=== PATIENT | male | born 1945 | race Caucasian/White ===

== ENCOUNTER 2017-10-09 07:00 | Day surgery (SDC) | payer OTHER ==
[2017-10-05 14:49] LABS: Absolute Lymphocytes (CBC) 1.5 K/uL (0.7-4.9); Absolute Monocytes 0.6 K/uL (0.1-1.3); Absolute Neutrophil 4.9 K/uL (1.8-8.0); Basophils % 0.6 % (0-1.3); Eosinophils % 2.5 % (0-4.4); Hematocrit 49.9 % (39.6-49.0); Lymphocytes % 20.4 % (15.3-44.8); MCH 30.1 pg (27.0-35.0); MPV 8.9 fL (7.6-11.3); Monocytes % 8.3 % (3.3-12.3); RBC Red Blood Cell Count 5.67 M/uL (4.33-5.43)
[2017-10-05 14:55] LABS: Protime INR 1.03
[2017-10-05 15:01] LABS: Potassium 4.2 mmol/L (3.5-5.1)
--- NOTE | 2017-10-05 16:13 | RAD REPORT ---
EXAM DESCRIPTION: Campos Mejia (2 Views)10/05/2017 2:21 pm CLINICAL HISTORY: Preop cardiac catheterization COMPARISON: 2016 FINDINGS: The lungs appear clear of acute infiltrate. The heart is normal size IMPRESSION: No acute abnormalities displayed
[~2017-10-09 07:00] MED LIST: HEPA 1000U/500MLS 1,000 UNIT/500 ML BAG IV ONE; LIDOCAINE 1% MPF 2 ML AMPULE ONE; NA CHLORIDE 0.9% 0 ML ONE
[2017-10-09] MEDS ORDERED: NA CHLORIDE 0.9% 500 ML ONE (07:15)
[2017-10-09] MEDS ORDERED: HEPARIN 5000 UNIT/ML 1 ML VIAL ONE (08:14)
[2017-10-09] MEDS ORDERED: NA CHLORIDE 0.9% 50 ML ONE ×2 (08:14→10:01)
[2017-10-09] MEDS ORDERED: NICARDIPINE HCL 25 MG/10 ML IV ONE (08:14)
[2017-10-09] MEDS ORDERED: ATROPINE SULF 1 MG/10 ML SYR IV ONE (08:14)
[2017-10-09] MEDS ORDERED: MIDAZOLAM HCL 2 MG/2 ML INJ ONE ×2 (08:56→09:00)
[2017-10-09] MEDS ORDERED: FENTANYL CITR 100 MCG/2 ML ONE (08:56)
[2017-10-09] MEDS ORDERED: PRASUGREL (EFFIENT) 10 MG TAB ONE (10:21)
[2017-10-09 13:51] VITALS: BMI 25.8
[2017-10-09] MEDS ORDERED: ATORVASTATIN 80 MG TAB PO SCH (21:00)
[2017-10-09] MEDS ORDERED: TAMSULOSIN 0.4 MG SR CAP PO SCH (21:00)
--- NOTE | 2017-10-09 21:33 | OP ---
Surgeon: Todd Mcdaniel MD Procedure: Left heart catheterization, coronary left ventricular angiography, percutaneous coronary intervention, angioplasty of a distal LAD lesion with a stent, successful 0% residual stenosis, 80% p reprocedure. Procedure In Detail: The patient was brought to the cardiac cath laboratory technician in a fasting state. He had dys pnea on exertion, chest tightness, angina symptoms. He was sedated with Versed and fentanyl, prepare d and draped in usual sterile fashion. Right radial approach was used. 1% lidocaine was used to ane sthetize the skin over the right radial artery, and the artery was entered using a 21-gauge needle. A 0.021 inch diameter guidewire was used to cannulate the artery. We used a modified Seldinger techn ique and placed a 6-Ukrainian Terumo sheath, it was flushed, and we gave a radial cocktail consisting of nicardipine, heparin, and nitroglycerin. We guided a [employer] TIG catheter into the ascending aorta u sing fluoroscopy and a short radius tip Glidewire. We were able to angiogram the left ventricle, lef t coronary, right coronary with the TIG catheter. We then decided to do a stent on the distal LAD. He was loaded with Angiomax, demonstrated an adequate activated clotting time. We first used an Ikar i 4.0 left guide. It successfully engaged, but it would not give adequate support, so we switched to an XB LAD 4.0 with side holes. This gave us adequate support. We crossed the lesion using a Reading wire. We predilated with a 2.5 x 15 Emerge balloon. We then placed a stent, a 2.5 x 12 across the lesion. There was some spasm in the first diagonal and was relieved when we gave nitroglycerin intra coronary. Excellent angiographic result. As soon as the last picture was taken, all catheters and w ires were removed. The sheath was removed from his right radial artery. Arteriotomy closed with a TR band. We turned off Angiomax, and he will be stay ing in the hospital overnight. TARA/MARIA EUGENIA Voice ID: [id number] Report ID: [id number]
[2017-10-09] MEDS: PREGABALIN 75 MG CAP PO SCH (22:04)
[2017-10-09] MEDS: DONEPEZIL HCL 5 MG TAB PO SCH (22:04)
[2017-10-10 05:59] LABS: Potassium 3.5 mmol/L (3.5-5.1)
[2017-10-10 06:01] LABS: Hematocrit 44.9 % (39.6-49.0); MCH 30.5 pg (27.0-35.0); MCV 86.6 fL (80-100); MPV 8.7 fL (7.6-11.3); RBC Red Blood Cell Count 5.18 M/uL (4.33-5.43)
[2017-10-10] MEDS ORDERED: PANTOPRAZOLE 40MG TABLET PO SCH (06:30)
[2017-10-10] MEDS: DONEPEZIL HCL 5 MG TAB PO SCH (08:54)
[2017-10-10] MEDS: PREGABALIN 75 MG CAP PO SCH (08:54)
[2017-10-10] MEDS ORDERED: CLOPIDOGREL 75 MG TABLET PO SCH (09:00)
[2017-10-10] MEDS ORDERED: FINASTERIDE 5 MG TAB PO SCH (09:00)
[2017-10-10] MEDS ORDERED: MEMANTINE HCL 10 MG TABLET PO SCH (09:00)
[2017-10-10 09:59] VITALS: O2SAT 95
[2017-10-10 10:27] VITALS: BP 145/85; TEMP 97.4
== END 2017-10-10 10:48 | disposition home or self-care (01) ==
LOC: CCL 07:00 → 2ND 10:28 → CCL 10-10 10:48
PROVIDERS: ATTEND Internal Medicine
PROC: 027034Z Dilation of Coronary Artery, One Artery with Drug-eluting Intraluminal Device, Percutaneous Approach (ICD-10-PCS; principal; 2017-10-09)
PROC: 4A023N7 Measurement of Cardiac Sampling and Pressure, Left Heart, Percutaneous Approach (ICD-10-PCS; 2017-10-09)
PROC: B211YZZ Fluoroscopy of Multiple Coronary Arteries using Other Contrast (ICD-10-PCS; 2017-10-09)
PROC: B215YZZ Fluoroscopy of Left Heart using Other Contrast (ICD-10-PCS; 2017-10-09)
DX: I25.84 Coronary atherosclerosis due to calcified coronary lesion (principal); Z87.891 Personal history of nicotine dependence; I10 Essential (primary) hypertension; E78.5 Hyperlipidemia, unspecified; I25.110 Atherosclerotic heart disease of native coronary artery with unstable angina pectoris
CPT/HCPCS: 36415; 71046; 80048; 85025; 85027; 85610; 85730; 92928; 93458; C1725; C1877; C1893; J0583; J1644; J2001; J2250; J3010

== ENCOUNTER 2018-12-20 21:10 | Emergency (ER) | payer OTHER ==
--- NOTE | 2018-12-20 23:12 | ER ---
Nurse's Notes [facility] Name: Bryn Flood Age: 73 yrs Sex: Male : 1945 Arrival Date: 12/20/2018 Time: 21:11 Bed 3 Private MD: Diagnosis: Abrasion of knee;Contusion of other part of head Presentation: 12/20 21:12 Presenting complaint: EMS states: pt from [facility]. pt stood out of wheelchair and ak1 fell hitting his chin on nurses station desk hyper extending his neck. pt norm is A\T\OX0. pt c-collar and back boarded upon arrival. pt with abrasion to left knee. EMS stated NH nurse stated pt had multiple falls today. Care prior to arrival: None. Mechanism of Injury: Fall from standing position. Trauma event details: Injury occurred in the [facility], Injury occurred: [facility] Injury occurred: December 20, 2018. 21:12 Acuity: PATRICIA 3 ak1 21:12 Method Of Arrival: EMS: [facility] ak1 21:18 Transition of care: patient was received from another setting of care (long-term care facility), main campus medical center. Risk Assessment: Do you want to hurt yourself or someone else? Patient reports no desire to harm self or others. 23:00 Onset of symptoms is unknown. Initial Sepsis Screen: Does the patient meet any 2 ak1 criteria? No. Patient's initial sepsis screen is negative. Does the patient have a suspected source of infection? No. Patient's initial sepsis screen is negative. Historical: - Allergies: 21:31 No Known Allergies; fc - Home Meds: 21:31 lactulose 10 gram/15 mL (15 mL) Oral soln 30 mL qd prn [Active]; finasteride 5 mg oral fc tab 1 tab once daily [Active]; lorazepam 0.5 mg Oral tab 1 tab q 2 hrs prn [Active]; memantine 5 mg oral tab daily [Active]; Morphine 100 mg/5 ml Oral 0.5 mL q 2hrs prn [Active]; pantoprazole 40 mg oral TbEC 1 tab once daily [Active]; pregabalin 100 mg Oral daily [Active]; risperidone 0.5 mg oral TbDL 2 times per day [Active]; scopolamine transdermal transdermal 1 patch q 72 hrs prn [Active]; sertraline 50 mg oral tab 1 tab once daily [Active]; tamsulosin 0.4 mg oral cp24 1 cap nightly [Active]; acetaminophen 650 mg Rectal supp 1 suppository q 6 hrs prn [Active]; aspirin 81 mg Oral TbEC 1 tab once daily [Active]; atorvastatin 80 mg oral tab 1 tab once daily [Active]; baclofen 10 mg Oral tab 1 tab nightly [Active]; donepezil 10 mg oral tab 1 tab once daily [Active]; Vitamin C 500 mg Oral tab daily [Active]; zinc sulfate 220 mg Oral tab daily [Active]; Zofran (as hydrochloride) 4 mg Oral tab q4hrs prn [Active]; - PMHx: 21:31 Alzheimers; Dementia; Depression; GERD; fc - Immunization history: Last tetanus immunization: unknown. - Social history:: Smoking status: Patient/guardian denies using tobacco. - Ebola Screening: : No symptoms or risks identified at this time. Screenin:12 Abuse screen: Denies threats or abuse. Denies injuries from another. Tuberculosis ak1 screening: No symptoms or risk factors identified. 23:01 Nutritional screening: No deficits noted. Fall Risk Fall in past 12 months (25 points). ak1 Primary Survey: 21:12 NO uncontrolled hemorrhage observed. Breathing/Chest: Respiratory pattern: regular, ak1 Respiratory effort: spontaneous, unlabored. Circulation: Skin temperature: warm, dry. Disability Alert. Exposure/Environment: A warming method has been applied: A warm blanket has been provided to the patient. 23:02 Reassessment Breathing/Chest Respiratory pattern Regular Respiratory effort Spontaneous.ak1 Secondary Survey: 21:12 HEENT: No deficits noted. Gastrointestinal: No deficits noted. Abdomen is soft. : No ak1 signs and/or symptoms were reported regarding the genitourinary system. Musculoskeletal: Range of motion: intact in all extremities, pt remains in c-collar placed by EMS. Assessment: 21:12 General: Appears in no apparent distress. slender, Behavior is confused. . Pain: Unable ak1 to use pain scale. Does not appear to understand pain scale. Neuro: Level of Consciousness is awake, confused, pt is normally A\T\OX0. pt is on hospice and has endstage Alzheimer. . EENT: No signs and/or symptoms were reported regarding the EENT system. Cardiovascular: No deficits noted. Respiratory: Airway is patent Respiratory effort is even, unlabored. GI: No signs and/or symptoms were reported involving the gastrointestinal system. : No signs and/or symptoms were reported regarding the genitourinary system. Derm: abrasion to left knee. pt with hx of pressure ulcer to buttocks per [place] paperwork. Musculoskeletal: Range of motion: intact in all extremities, pt remains in C-collar. pt removed from back Board by Dr. Gaffney. 23:00 Reassessment: Patient appears in no apparent distress at this time. No changes from [facility] previously documented assessment. Patient and/or family updated on plan of care and expected duration. Pain level reassessed. family at bedside. [place] updated on plan of care. 23:20 Reassessment: Roderick with [place] contacted to arrange transportation. Roderick stated he [facility] would arrange for stretcher transport due to pt confusion and fall risk. 23:22 Reassessment: pt removed all vital monitoring equipment. ak 12/21 00:14 Reassessment: pt medicated for agitation, Diane with [facility] contacted and [facility] updated report given. EMS contacted for transport. Vital Signs: 12/20 21:12 BP 110 / 66; Pulse 90; Resp 16; Temp 97.0(TE); Pulse Ox 100% on R/A; Weight 81.65 kg ak1 (R); Height 6 ft. 0 in. (182.88 cm) (R); 23:01 BP 90 / 47; Pulse 86; Resp 16; Temp 97.6; Pulse Ox 100% on R/A; ak1 21:12 Body Mass Index 24.41 (81.65 kg, 182.88 cm) ak1 Charline Coma Score: 21:12 Eye Response: to voice(3). Verbal Response: confused(4). Motor Response: withdraws from ak1 pain(4). Total: 11. 21:12 again, pt norm is A\T\OX0 due to end stage alzheimers. ak1 Trauma Score (Adult): 21:12 Eye Response: to voice(0); Verbal Response: confused(1); Motor Response: withdraws from ak1 pain(1); Systolic BP: > 89 mm Hg(4); Respiratory Rate: 10 to 29 per min(4); [place] Score: 11; Trauma Score: 10; pt A\T\OX0 which is pt's norm ED Course: 21:11 Patient arrived in ED. ds1 21:12 Katie Schroeder RN is Primary Nurse. ak1 21:12 Patient has correct armband on for positive identification. Bed in low position. Call ak1 light in reach. Side rails up X2. Adult w/ patient. 21:12 Patient maintains SpO2 saturation greater than 95% on room air. ak1 21:14 Everardo Santos PA is PHCP. cp 21:14 Christopher Gaffney MD is Attending Physician. cp 21:16 Triage completed. ak1 21:59 CT Traumagram (Head C Spine CAP wo con) In Process Unspecified. EDMS 23:02 Thermoregulation: warm blanket given to patient. ak1 23:21 No provider procedures requiring assistance completed. c-collar removed. Patient did ak1 not have IV access during this emergency room visit. 23:22 Arm band placed on Patient placed in an exam room, on a stretcher, on pulse oximetry. ak1 Administered Medications: 12/21 00:12 Drug: HALdol (as decanoate) 2.5 mg Route: IM; Site: right deltoid; ak1 00:13 Drug: Ativan 1 mg Route: IM; Site: right deltoid; ak1 Intake: 12/20 21:12 PO: 0ml; Total: 0ml. ak1 Outcome: 23:11 Discharge ordered by . gs 23:22 Condition: stable ak1 23:22 Instructed on discharge instructions, follow up and referral plans. report given to Roderick jack [place]. 12/21 00:39 Patient left the ED. ak1 Signatures: Dispatcher [employer] EDMS Natalie Russell RN RN fc Sanford, Demi ds1 Katie Schroeder RN RN ak1 Everardo Santos PA PA cp Starr, Gregory, MD MD
--- NOTE | 2018-12-20 23:13 | EDPHYS ---
Physician Documentation [facility] Name: Bryn Flood Age: 73 yrs Sex: Male : 1945 Arrival Date: 12/20/2018 Time: 21:11 Bed 3 Private MD: ED Physician Christopher Gaffney HPI: 12/20 23:07 This 73 yrs old Male presents to ER via EMS with complaints of Fall Injury. gs 23:07 Details of fall: The patient fell from seated position, out of a wheelchair. Onset: The gs symptoms/episode began/occurred acutely, just prior to arrival. Associated injuries: The patient sustained injury to the head, neck injury, upper back injury. Severity of symptoms: At their worst the symptoms were moderate, in the emergency department the symptoms are unchanged. Unable to obtain HPI due to baseline dementia. Historical: - Allergies: 21:31 No Known Allergies; fc - Home Meds: 21:31 lactulose 10 gram/15 mL (15 mL) Oral soln 30 mL qd prn [Active]; finasteride 5 mg oral fc tab 1 tab once daily [Active]; lorazepam 0.5 mg Oral tab 1 tab q 2 hrs prn [Active]; memantine 5 mg oral tab daily [Active]; Morphine 100 mg/5 ml Oral 0.5 mL q 2hrs prn [Active]; pantoprazole 40 mg oral TbEC 1 tab once daily [Active]; pregabalin 100 mg Oral daily [Active]; risperidone 0.5 mg oral TbDL 2 times per day [Active]; scopolamine transdermal transdermal 1 patch q 72 hrs prn [Active]; sertraline 50 mg oral tab 1 tab once daily [Active]; tamsulosin 0.4 mg oral cp24 1 cap nightly [Active]; acetaminophen 650 mg Rectal supp 1 suppository q 6 hrs prn [Active]; aspirin 81 mg Oral TbEC 1 tab once daily [Active]; atorvastatin 80 mg oral tab 1 tab once daily [Active]; baclofen 10 mg Oral tab 1 tab nightly [Active]; donepezil 10 mg oral tab 1 tab once daily [Active]; Vitamin C 500 mg Oral tab daily [Active]; zinc sulfate 220 mg Oral tab daily [Active]; Zofran (as hydrochloride) 4 mg Oral tab q4hrs prn [Active]; - PMHx: 21:31 Alzheimers; Dementia; Depression; GERD; fc - Immunization history: Last tetanus immunization: unknown. - Social history:: Smoking status: Patient/guardian denies using tobacco. - Ebola Screening: : No symptoms or risks identified at this time. ROS: 23:07 Unable to obtain ROS due to baseline dementia. gs Exam: 23:07 Head/Face: Normocephalic, atraumatic. Eyes: Pupils equal round and reactive to light, gs extra-ocular motions intact. Lids and lashes normal. Conjunctiva and sclera are non-icteric and not injected. Cornea within normal limits. Periorbital areas with no swelling, redness, or edema. ENT: Nares patent. No nasal discharge, no septal abnormalities noted. Tympanic membranes are normal and external auditory canals are clear. Oropharynx with no redness, swelling, or masses, exudates, or evidence of obstruction, uvula midline. Mucous membranes moist. 23:07 Chest/axilla: Normal chest wall appearance and motion. Nontender with no deformity. No lesions are appreciated. Cardiovascular: Regular rate and rhythm with a normal S1 and S2. No gallops, murmurs, or rubs. Normal PMI, no JVD. No pulse deficits. Respiratory: Lungs have equal breath sounds bilaterally, clear to auscultation and percussion. No rales, rhonchi or wheezes noted. No increased work of breathing, no retractions or nasal flaring. Abdomen/GI: Soft, non-tender, with normal bowel sounds. No distension or tympany. No guarding or rebound. No evidence of tenderness throughout. 23:07 MS/ Extremity: Pulses equal, no cyanosis. Neurovascular intact. Full, normal range of motion. Neuro: Awake and alert, GCS 15, oriented to person, place, time, and situation. Cranial nerves II-XII grossly intact. Motor strength 5/5 in all extremities. Sensory grossly intact. Cerebellar exam normal. Normal gait. 23:07 Constitutional: The patient appears awake. 23:07 Neck: C-spine: vertebral tenderness, that is mild. 23:07 Back: vertebral tenderness, is appreciated at T3, T4, T12 and L1. 23:07 Skin: injury, abrasion(s), small abrasion noted, of the right knee. Vital Signs: 21:12 BP 110 / 66; Pulse 90; Resp 16; Temp 97.0(TE); Pulse Ox 100% on R/A; Weight 81.65 kg ak1 (R); Height 6 ft. 0 in. (182.88 cm) (R); 23:01 BP 90 / 47; Pulse 86; Resp 16; Temp 97.6; Pulse Ox 100% on R/A; ak1 21:12 Body Mass Index 24.41 (81.65 kg, 182.88 cm) ak1 Charline Coma Score: 21:12 Eye Response: to voice(3). Verbal Response: confused(4). Motor Response: withdraws from ak1 pain(4). Total: 11. 21:12 again, pt norm is A\T\OX0 due to end stage alzheimers. ak1 Trauma Score (Adult): 21:12 Eye Response: to voice(0); Verbal Response: confused(1); Motor Response: withdraws from ak1 pain(1); Systolic BP: > 89 mm Hg(4); Respiratory Rate: 10 to 29 per min(4); [place] Score: 11; Trauma Score: 10; pt A\T\OX0 which is pt's norm MDM: 21:24 Patient medically screened. gs 23:07 Differential diagnosis: abrasion, closed head injury, contusion, fracture. Data gs reviewed: vital signs, nurses notes, radiologic studies. Response to treatment: the patient's symptoms have markedly improved after treatment, and as a result, I will discharge patient. 12/20 21:16 Order name: CT Traumagram (Head C Spine CAP wo con) gs Administered Medications: 12/21 00:12 Drug: HALdol (as decanoate) 2.5 mg Route: IM; Site: right deltoid; ak1 00:13 Drug: Ativan 1 mg Route: IM; Site: right deltoid; ak1 Disposition: 12/20/18 23:11 Discharged to Home. Impression: Abrasion of knee, Contusion of other part of head. - Condition is Stable. - Discharge Instructions: Head Injury, Adult. - Medication Reconciliation Form, Thank You Letter, Antibiotic Education, Prescription Opioid Use, SBAR form form. - Follow up: Private Physician; When: 2 - 3 days; Reason: Re-evaluation by your physician. Signatures: Dispatcher [employer] EDIA Natalie Russell, RN RN Katie Schroeder RN RN ak1 Christopher Gaffney MD MD gs Corrections: (The following items were deleted from the chart) 00:39 12/20 23:11 12/20/2018 23:11 Discharged to Home. Impression: Abrasion of knee; ak1 Contusion of other part of head. Condition is Stable. Forms are Medication Reconciliation Form, Thank You Letter, Antibiotic Education, Prescription Opioid Use. Follow up: Private Physician; When: 2 - 3 days; Reason: Re-evaluation by your physician. gs
[2018-12-21] MEDS ORDERED: LORazepam 2 MG/ML VIAL ONE (00:04)
[2018-12-21] MEDS ORDERED: HALOPERIDOL LACT 5 MG/ML INJ ONE (00:04)
[2018-12-21 01:25] VITALS: O2SAT 100
[2018-12-21 01:26] VITALS: BP 90/47; TEMP 97.6
--- NOTE | 2018-12-24 13:48 | RAD REPORT ---
EXAM DESCRIPTION: Head C Spine Cap Wo Con CLINICAL HISTORY: Fall;Pain TECHNIQUE: Contiguous axial CT images obtained through the brain without IV contrast. Coronal and sa gittal reformatted images were provided. This exam was performed according to our departmental dose-optimization program, which includes autom ated exposure control, adjustment of the mA and/or kV according to patient size and/or use of iterati ve reconstruction technique. COMPARISON: None available for comparison FINDINGS: Brain: There is mild to moderate cerebral atrophy. Bilateral periventricular and subcortic al white matter hypodensity most likely related to chronic microvascular angiopathy. No focal mass ef fect. Mendez-white matter differentiation is within normal limits. No hemorrhage. Ventricles: No ventriculomegaly or midline shift. Extra-axial spaces: No extra-axial collection or hemorrhage. Paranasal sinuses and mastoid air cells: Well-aerated Vessels: There is atherosclerotic disease of the internal carotid arteries bilaterally. Bones: Unremarkable Soft tissues: Unremarkable IMPRESSION: 1. No acute intracranial or extra-axial abnormality. 2. Other findings as above. EXAM DESCRIPTION: C Spine Wo Con CLINICAL HISTORY: Fall;Pain TECHNIQUE: Contiguous axial CT images obtained through the cervical spine without IV contrast. Coron al and sagittal reformatted images also provided. This exam was performed according to our departmental dose-optimization program, which includes autom ated exposure control, adjustment of the mA and/or kV according to patient size and/or use of iterati ve reconstruction technique. COMPARISON: None available for comparison FINDINGS: Vertebra: No acute fracture or subluxation. T3 intraosseous hemangioma extending into the left posterior elements. Disc spaces: Moderate multilevel spondylosis manifested by mild to moderate disc degeneration, endpla te changes, prominent concentric disc osteophytes and mild to moderate facet arthropathy. No critical canal stenosis. Prevertebral soft tissues: Unremarkable Lung apices: Minimal biapical paraseptal emphysema. IMPRESSION: No acute injury. EXAM DESCRIPTION: Chest Wo Con CLINICAL HISTORY: Fall;Pain TECHNIQUE: Contiguous axial images obtained through the chest without IV contrast. Coronal and sagit louis reformatted images provided. This exam was performed according to our departmental dose-optimization program, which includes autom ated exposure control, adjustment of the mA and/or kV according to patient size and/or use of iterati ve reconstruction technique. COMPARISON: No prior exams provided for comparison. FINDINGS: Lungs: Minimal paraseptal emphysema. Minimal bibasilar subsegmental atelectasis/pleural pa renchymal scar. Airways are patent. Pleura: No effusion. No pneumothorax. Heart and pericardium: The heart is normal in size. Coronary artery calcification. No pericardial eff usion. Mediastinum and marie: No pathologically enlarged lymph nodes. Lower neck and chest wall: Unremarkable Vessels: Mild atherosclerotic disease. The ascending aorta measures 4.1 cm in maximum diameter. Bones: Mild multilevel spondylosis. Intraosseous hemangioma at T3, T6 and T10 extending into the left posterior elements at T3. No acute fracture. IMPRESSION: 1. No acute injury. 2. Other findings as above. EXAM DESCRIPTION: Abdomen Pelvis Wo Con CLINICAL HISTORY: Fall;Pain TECHNIQUE: Contiguous axial images obtained through the abdomen and pelvis without IV contrast. Rangel nal and sagittal reformatted images were provided. This exam was performed according to our departmental dose-optimization program, which includes autom ated exposure control, adjustment of the mA and/or kV according to patient size and/or use of iterati ve reconstruction technique. COMPARISON: None available for comparison. FINDINGS: Liver: Unremarkable Gallbladder and biliary system: Unremarkable Pancreas: Moderate pancreatic atrophy. Spleen: Unremarkable Adrenals: Unremarkable Kidneys: Multiple bilateral renal calculi, the largest measuring 7 mm. No hydronephrosis. Bowel: Duodenal diverticula. Moderate stool. Colonic diverticula without adjacent inflammatory change . No obstruction. No appreciable mucosal thickening. Appendix: Normal caliber appendix. No findings to suggest acute appendicitis. Urinary bladder: Unremarkable Reproductive: Unremarkable as visualized Lymph nodes: No pathologically enlarged lymph nodes. Peritoneum: No focal fluid collection. No free air. Vessels: Mild to moderate atherosclerotic disease. No abdominal aortic aneurysm. Abdominal wall: Small fat-containing left inguinal hernia. Bones: Multilevel spondylosis most pronounced at L4-L5 and L5-S1. No acute fracture. IMPRESSION: 1. Allowing for unenhanced technique, no evidence for hollow or solid organ injury. 2. Other findings as above. Electronically signed by: Wilfrido Khoury MD 12/20/2018 10:33 PM CDT Due to temporary technical issues with the PACS/Fluency reporting system, reports are being signed by the in house radiologist as a courtesy to ensure prompt reporting. The interpreting radiologist is f ully responsible for the content of the report.
== END 2018-12-21 00:39 | disposition home or self-care (01) ==
LOC: ER 21:10
DX: S00.83XA Contusion of other part of head, initial encounter (principal); W05.0XXA Fall from non-moving wheelchair, initial encounter; Y93.9 Activity, unspecified; Y92.9 Unspecified place or not applicable; Z79.82 Long term (current) use of aspirin; G30.9 Alzheimer's disease, unspecified; F02.80 Dementia in other diseases classified elsewhere, unspecified severity, without behavioral disturbance, psychotic disturbance, mood disturbance, and anxiety; F32.9 Major depressive disorder, single episode, unspecified
CPT/HCPCS: 70450; 71250; 72125; 96372; 99284; J1630